=== PATIENT | female | born 1990 | race Caucasian/White ===

== ENCOUNTER 2023-04-28 04:51 | Emergency (ER) | payer BC ==
[~2023-04-28] VITALS: Ht 167.6 cm; Wt 91.0 kg
[2023-04-28 05:04] VITALS: O2SAT 98
[2023-04-28] MEDS: DIPHENHYDRAMINE 50MG/ML VIAL IV ONE (06:19)
[2023-04-28] MEDS: METHYLPREDNISOLONE SOD SUCC 125MG/2ML (ACT-O-VIAL) IV ONE (06:20)
[2023-04-28] MEDS: FAMOTIDINE 20MG/2ML VIAL IV ONE (06:20)
[2023-04-28] MEDS ORDERED: P50 PO (07:32)
[2023-04-28] MEDS ORDERED: DIPH25CA83 PO (07:32)
[2023-04-28 09:07] VITALS: BP 112/67; PULSE 84; RESP 14; TEMP 98.2
== END 2023-04-28 09:08 | disposition home or self-care (01) ==
LOC: EDBD 04:51 → ER 05:13
DX: L50.9 Urticaria, unspecified (principal); Z98.890 Other specified postprocedural states
CPT/HCPCS: 96374; 96375; 99284; J1200; J3490; J2930; Z7610